=== PATIENT | male | born 2005 | race Asian ===

== ENCOUNTER 2025-04-27 00:32 | Emergency (ER) | payer OTHER, SELFPAY ==
[2025-04-27 00:40] VITALS: BP 139/84; PULSE 72; RESP 18; TEMP 36.9; O2SAT 98; BMI 22.3
--- OUTSIDE RECORDS SUMMARY | 2025-04-27 01:06 | XMS_ITS | Clinical Summary ---
Author Organization [facility] Address [address] [place] [id number] Care Team Providers Care Manager Budget Name Role Phone Jayson Paz MD Primary Care Provider [phone] Allergies Active Allergy Reactions Criticality Noted Date Comments Peanut Anaphylaxis High 06/03/2018 Medications EPINEPHrine (EPIPEN) 0.3 mg/0.3 mL injection 0.3 mL (0.3 mg total) by Intramuscular - THIGH route as needed for anaphylaxis. May repeat if symptoms persist. 2 Device 8 Active cetirizine (ZyrTEC) 10 MG tablet Take 1 tablet (10 mg total) by mouth daily. 3 tablet 8 Active ranitidine (ZANTAC) 150 MG tablet Take 1 tablet (150 mg total) by mouth daily. 3 tablet 8 Active predniSONE (DELTASONE) 20 MG tablet Take 3 tablets (60 mg total) by mouth daily. 9 tablet 8 Active Social History Tobacco Use Types Packs/Day Years Used Date Smoking Tobacco: Never Assessed Sex and Gender Information Value Date Recorded Sex Assigned at Not on file Legal Sex Male 6:28 AM EST Gender Identity Not on file Sexual Orientation Not on file Last Filed Vital Signs Vital Sign Reading Time Taken Comments Blood Pressure 122/56 06/03/2018 6:30 PM EDT Pulse 95 06/03/2018 6:30 PM EDT Temperature 37 C (98.6 F) 06/03/2018 3:11 PM EDT Respiratory Rate 20 06/03/2018 6:30 PM EDT Oxygen Saturation 96% 06/03/2018 6:30 PM EDT Inhaled Oxygen Concentration - - Weight 51.2 kg (112 lb 14 oz) 06/03/2018 3:11 PM EDT Height - - Body Mass Index - - Plan of Treatment Health Maintenance Due Date Last Done Comments Blood Pressure 2004 Depression Screening 2008 Meningococcal B Vaccines (1 of 2 - Standard) 2020 Hepatitis C Screening 2022 COVID-19 Vaccine ( season) 2025 Influenza Vaccine (#1) 2025 8, 05/18/2017, 06/05/2016, Additional history exists DTaP,Tdap,and Td Vaccines (7 - Td or Tdap) 06/03/2025 06/03/2015, 06/04/2009, 08/16/2005, Additional history exists Pneumococcal Vaccine: Pediatrics (0 to 5 Years) and At-Risk Patients (6 to 64 Years) Aged Out 08/16/2005, 2004, 2004, Additional history exists No longer eligible based on patient's age to complete this topic Meningococcal Vaccines Aged Out 06/03/2015 No lo nger eligible based on patient's age to complete this topic Insurance [employer] Care Teams Manager Budget Relationship Specialty Start Date End Date Jayson Paz MD PCP - General 09/11/17
--- OUTSIDE RECORDS SUMMARY | 2025-04-27 01:06 | XMS_ITS | Encounter Summary ---
Author Organization [facility] Address [address] [place] [id number] Care Team Providers Care Scouring Pads Supervisor Name Role Phone Jayson Paz MD Primary Care Provider [phone] Encounter Details Date Type Department Care Team (Late st Contact Info) Description 06/03/2021 Lab Requisition [facility] [address] [place] [address] Jayson Paz MD [address] [facility] [address] [place] [address] Encounter for routine child health examination without abnormal findings Social History Tobacco Use Types Packs/Day Years Used Date Smoking Tobacco: Never Assessed Sex and Gender Information Value Date Recorded Sex Assigned at Not on file Legal Sex Male 6:28 AM EST Gender Identity Not on file Sexual Orientation Not on file documented as of this encounter Plan of Treatment Not on file documented as of this encounter Procedures Procedure Name Priority Date/Time Associated Diagnosis Comments AMPLIFIED PROBE, CHLAM AND GC, URINE Routine 06/03/2021 3:40 PM EDT Encounter for routine child health examination without abnormal findings documented in this encounter Results * Chlamydia and GC, Amplified Probe, Urine (06/03/2021 3:40 PM EDT) N. gonorrhoeae by Amplified Probe Negative Negative 06/05/2021 9:48 AM EDT [facility] C. trachomatis by Amplified Probe Negative Negative 06/05/2021 9:48 AM EDT [facility] Urine FIRST STREAM URINE SPECIMEN / Unknown 06/03/2021 3:40 PM EDT 06/03/2021 9:24 PM EDT Narrative [facility] - 06/05/2021 9:48 AM EDT This test is approved for vaginal, endocervical, thin prep and urine specimens. The reliability of testing from other sites has not been established. This assay is not intended to be used as a test of cure; a culture is suggested. Testing performed using the [employer] real time PCR platform. us Jayson Paz MD MICROBIOLOGY - GENERAL ORDERABLE S Final Result [facility] [address] [place] [address], documented in this encounter Visit Diagnoses Diagnosis Encounter for routine child health examination without abnormal findings documented in this encounter Care Teams Scouring Pads Supervisor Relationship Specialty Start Date End Date Jayson Paz MD PCP - General 09/11/17 documented as of this encounter
--- OUTSIDE RECORDS SUMMARY | 2025-04-27 01:06 | XMS_ITS | Encounter Summary ---
Author Organization [facility] Address [address] [place], [place] [id number] Care Team Providers Care Metal Engraver Name Role Phone Jayson Paz MD Primary Care Provider [phone] Encounter Details Date Type Department Care Team (Late st Contact Info) Description 07/24/2023 Lab [facility] Ordering LockJayson MD [address] [facility] [address] [place] [address] Encounter for general adult medical examination without abnormal findings Social History Tobacco [...] AMPLIFIED PROBE, CHLAM AND GC, URINE Routine 07/24/2023 3:42 PM EST Encounter for general adult medical examination without abnormal findings AMPLIFIED PROBE, CHLAMYDIA AND GC Routine 07/24/2023 3:42 PM EST Encounter for general adult medical examination without abnormal findings documented in this encounter Results * Chlamydia and GC, Amplified Probe (07/24/2023 3:42 PM EST) N. gonorrhoeae by Amplified Probe Negative Negative 07/25/2023 10:36 AM EST [facility] C. trachomatis by Amplified Probe Negative Negative 07/25/2023 10:36 AM EST [facility] xOther URINE SPECIMEN / Unknown 07/24/2023 3:42 PM EST 07/24/2023 9:34 PM EST Narrative [facility] - 07/25/2023 10:36 AM EST This test is approved for vaginal, endocervical, thin prep and urine specimens. The reliability of testing from other sites has not been established. This assay is not intended to be used as a test of cure; a culture is suggested. Testing performed using the [employer] real time PCR platform. Jayson Paz MD MICROBIOLOGY - GENERAL ORDERABLE S Final Result Performing Organization Address [facility] de Phone Number [facility] [address] [place] [address], [place] [phone] * Chlamydia and GC Amplified Probe Urogenital (07/24/2023 3:42 PM EST) xOther URINE SPECIMEN / Unknown 07/24/2023 3:42 PM EST 07/24/2023 9:34 PM EST Jayson Paz MD MICROBIOLOGY - GENERAL ORDERABLE S Final Result Performing Organization Address [facility] de Phone Number [facility] [address] [place] [address], [place] [phone] documented in this encounter Visit Diagnoses Diagnosis Encounter for general adult medical examination without abnormal findings documented in this encounter Care Teams Metal Engraver Relationship Specialty Start Date End Date Jayson Paz MD PCP - General 09/11/17 documented as of this encounter
--- OUTSIDE RECORDS SUMMARY | 2025-04-27 01:06 | XMS_ITS | Encounter Summary ---
Author Organization [facility] Address [address] [place] [address] Care Team Providers Care Ship'S Electronic Warfare Officer Name Role Phone Jayson Paz MD Primary Care Provider [phone] Encounter Details Date Type Department Care Team (Late st Contact Info) Description 06/06/2022 Lab [facility] PPOC Ordering Jayson Paz MD [address] [facility] [address] [place] [address] Encounter for screening for infections with a predominantly sexual mode of transmission Social History Tobacco Use Types Packs/Day Years Used Date Smoking Tobacco: Never Assessed Sex and Gender Information Value Date Recorded Sex Assigned at Not on file Legal Sex Male 6:28 AM EST Gender Identity Not on file Sexual Orientation Not on file documented as of this encounter Plan of Treatment Not on file documented as of this encounter Visit Diagnoses Diagnosis Encounter for screening for infections with a predominantly sexual mode of transmission documented in this encounter Care Teams Ship'S Electronic Warfare Officer Relationship Specialty Start Date End Date Jayson Paz MD PCP - General 09/11/17 documented as of this encounter
--- OUTSIDE RECORDS SUMMARY | 2025-04-27 01:06 | XMS_ITS | Encounter Summary ---
Author Organization [facility] Address [address] [place] [address] Care Team Providers Care Chain Maker Name Role Phone Jayson Paz MD Primary Care Provider [phone] Encounter Details Date Type Department Care Team (Latest Contact Info) Description 06/06/2022 Lab Requisition [facility] [address] [place] [address] Jayson Paz MD [address] [place] [address] [address] [place] [address] Encounter for screening for infections with a [...] AMPLIFIED PROBE, CHLAM AND GC, URINE Routine 06/06/2022 11:25 AM EDT Encounter for screening for infections with a predominantly sexual mode of transmission documented in this encounter Results * Chlamydia and GC, Amplified Probe, Urine (06/06/2022 11:25 AM EDT) N. gonorrhoeae by Amplified Probe Negative Negative 06/07/2022 12:02 PM EDT [facility] C. trachomatis by Amplified Probe Negative Negative 06/07/2022 12:02 PM EDT [facility] Urine FIRST STREAM URINE SPECIMEN / Unknown 06/06/2022 11:25 AM EDT 06/06/2022 9:36 PM EDT Narrative [facility] - 06/07/2022 12:02 PM EDT This test is approved for vaginal, endocervical, thin prep and urine specimens. The reliability of testing from other sites has not been established. This assay is not intended to be used as a test of cure; a culture is suggested. Testing performed using the [employer] real time PCR platform. us Jayson Paz MD MICROBIOLOGY - GENERAL ORDERABLE S Final Result [facility] [address] [place] [address], documented in this encounter Visit Diagnoses Diagnosis Encounter for screening for infections with a predominantly sexual mode of transmission documented in this encounter Care Teams Chain Maker Relationship Specialty Start Date End Date Jayson Paz MD PCP - General 09/11/17 documented as of this encounter
--- NOTE | 2025-04-27 01:33 | ED_ITS ---
HPI - Allergic Reaction General Chief complaint: Allergic Reaction Stated complaint: Allergic Reaction to Peanuts Time Seen by Provider: 04/27/25 01:00 Source: patient Mode of arrival: ambulatory Limitations: no limitations History of Present Illness ED Provider: Dr. Jocelyn Medellin HPI narrative: 19-year-old male with history of peanut allergy presenting with vomiting after exposure to peanuts tonight. States he ate a ?pork bun with peanut sauce? and after he realized he ate it, he vomited. States that he has not had exposure to peanuts in about 7 years. He does have an EpiPen on him. Has been using Benadryl. Last dose was immediately prior to arrival and after eating the peanuts. No other exposures. No other new products or allergy exposures. Had been feeling well prior to this. Denies associated hives, chest pain, shortness of breath, tongue or throat swelling, abdominal pain, diarrhea or severe abdominal pain, syncope or near-syncope. Related Data Allergies Allergy/AdvReac Type Severity Reaction Status Date / Time peanut Allergy Itching Verified 04/27/25 00:43 Review of Systems Review of Systems: as per HPI, full review of systems performed and negative but for the above mentioned pertinent positives and negatives. [facility] Social History Social History Advance Directives: No Advance Directives Information Provided: No Do you have a plan to hurt others: No Plan Physical Exam ED Exam Exam: GENERAL: Nontoxic, conversant, appears uncomfortable. SKIN: Normal skin color for ethnicity, warm, dry, diffuse urticaria. HEENT:? Normocephalic, atraumatic, no stridor, posterior oropharynx nonerythematous, no oropharyngeal edema, dentition intact, EOMI, normal phonation. NECK: Soft, supple, full ROM, midline structures nontender, no step-offs, no deformities, no lymphadenopathy. CHEST: Heart regular rate and rhythm, no murmurs, symmetric chest rise and fall. PULMONARY: Clear to auscultation bilaterally, no labored breathing, no wheezes/rhales/rhonchi. ABDOMINAL: Soft, nondistended, nontender, positive bowel sounds in all quadrants. : Deferred. MUSCULOSKELETAL: Normal tone, full range of motion, no deformities, no peripheral edema. NEURO: Alert and oriented x3, CN II through XII intact, equal strength and sensation bilateral upper and lower extremities, no focal neurologic deficits.? PSYCHIATRIC: Normal affect, fluid speech, good eye contact and appropriate demeanor. Vital Signs: Vital Signs - 24 hr 04/27/25 00:40 Temperature 98.4 F Pulse Rate 72 Respiratory Rate 18 Blood Pressure 139/84 Pulse Oximetry 98 Oxygen Delivery Method Room Air BMI result Body Mass Index 22.3 Medical Decision Making Medical Decision Making MDM Narrative: Patient presented today for signs and symptoms of possible allergic reaction. Differential diagnosis did include angioedema, anaphylaxis, drug reaction, infection, among others. Physical examination does not show any signs of multiple system involvement such as anaphylaxis, though this was considered.? Patient is not having any wheezing, nausea or vomiting, abdominal pain, or concerning swelling of the tongue or oropharynx.? Airway is unobstructed and blood pressures are within normal limits. Anaphylaxis precautions have been given to the patient in a note to return immediately for signs and symptoms of this.? Patient was offered/provided with a prescription for an Epi-Pen. He has 2 EpiPens on his person right now. Patient has been urged to follow up withan field operations coordinator as outpatient.? All questions have been answered and patient is stable for discharge. They are welcome back at any time for re-evaluation as we are always happy to do so. Differential Diagnosis Differential Diagnoses: The differential diagnosis associated with the presentation includes (as above) Admission/Observation Consideration of admission/observation: Escalation of care including admission/observation considered Prescription Management I considered prescription management with: Other (epi pen) Discharge Plan Discharge Clinical Impression: Allergic reaction Patient Disposition: Home, Self-Care Instructions: General Allergic Reaction (ED) Additional Instructions: Return to the emergency department with any new or worsening symptoms including: Shortness of breath, chest pain, passing out, vomiting, diarrhea, skin rashes, tongue or throat swelling, having to use your EpiPen, any new symptom that concerns you. Call 911 with any medical emergency. Keep your EpiPen on you at all times. Use it if you have to and then come to the hospital right away. Print Language: Polish
[2025-04-27 01:42] VITALS: BP 139/84; PULSE 72; RESP 18; TEMP 36.9; O2SAT 98
== END 2025-04-27 01:42 | disposition home or self-care (01) ==
PROVIDERS: Emergency Provider Emergency Medicine
DX: T78.1XXA Other adverse food reactions, not elsewhere classified, initial encounter (principal); Z91.010 Allergy to peanuts; X58.XXXA Exposure to other specified factors, initial encounter
CPT/HCPCS: 99282